=== PATIENT | male | born 1955 | race Caucasian/White ===

== ENCOUNTER 2016-05-20 15:58 | Inpatient (IN) | payer OTHER ==
[~2016-05-20] VITALS: Ht 175.3 cm; Wt 82.5 kg
[2016-05-20] MEDS ORDERED: SODIUM CHLORIDE 0.9% 1000ML 1,000 ML IV STA ×2 (16:48→19:34)
[2016-05-20] MEDS ORDERED: ONDANSETRON INJ 2 MG/ML 2 ML VIAL IV STA (16:48)
--- NOTE | 2016-05-20 16:57 | EMERGENCY ROOM VISIT NOTE ---
History Report prepared by Jeromyibaddison: Mavis Davis Under the Supervision of: Dr. Scott Palma D.O. First contact with patient: 16:40 Chief Complaint: ABNORMAL LABS Stated Complaint: SEVERE INDISGESTION, ABNORMAL EKG History of Present Illness The patient is a 61 year old male who presents to the Emergency Room with complaints of intermittent abdominal discomfort for the past 5 days. He is accompanied by his cousin. The patient reports 5 days ago, he awoke with " severe indigestion" in his epigastric region. He took a Tums and tried eating oatmeal, then vomited it up. He had a normal bowel movement afterwards, but reports it was "yellow" in color. He tried to eat something else later in the day and reports he could not keep anything down. By the next day, he was able to keep both water and food down, but still experienced the intermittent abdominal discomfort. He notes his urine has been "dark orange to yellow" in the past few days. This morning he noticed that his abdomen was distended and he has not had a bowel movement in the past 5 days. He went to a local urgent care clinic earlier today and was told he produced an abnormal EKG. He was then referred here to the ED for further evaluation. He denies any shortness of breath. He denies any chronic medical problems and states he has had no previous surgeries. He denies any tobacco or alcohol use. He reports he is a runner and is normally very healthy, noting he has never had an EKG before. Source of History: patient Onset: 5 days [employer] Position: abdomen Timing: intermittent Modifying Factors (Worsening): eating Associated Symptoms: + nausea, + urinary symptoms, + vomiting, No SOB Review of Systems See HPI for pertinent positives & negatives. A total of 10 systems reviewed and were otherwise negative. Past Medical & Surgical Medical Problems: (1) Atypical chest pain (2) Ileus (3) No significant past medical history Social History Smoking Status: Never Smoker Alcohol Use: none Drug Use: none Marital Status: single Housing Status: lives alone Occupation Status: employed Current/Historical Medications Scheduled Multivitamin (Multivitamin), 1 TAB PO DAILY Allergies Coded Allergies: No Known Allergies (Unverified , 05/20/16) Physical Exam Vital Signs Date Time Temp Pulse Resp B/P Pulse Ox O2 Delivery O2 Flow Rate FiO2 05/20/16 20:07 109 05/20/16 18:56 91 23 128/73 96 Room Air 05/20/16 16:59 92 05/20/16 16:34 37.4 125 20 144/84 96 Room Air Physical Exam GENERAL: Patient is awake, alert, in no acute distress patient is resting comfortably and showing no signs of anxiety EYES: The conjunctivae are clear. The pupils are round and reactive. EARS, NOSE, MOUTH AND THROAT: The nose is without any evidence of any deformity. Mucous membranes are moist tongue is midline NECK: The neck is nontender and supple. RESPIRATORY: Normal respiratory effort is noted there is no evidence of wheezing rhonchi or rales CARDIOVASCULAR: Regular rate and rhythm noted there no murmurs rubs or gallops normal S1 normal S2 GASTROINTESTINAL: The abdomen is moderately distended but soft. There was right upper and epigastric tenderness to palpation, no guarding or rigidity noted. MUSCULOSKELETAL/EXTREMITIES: There is no evidence of gross deformity full range of motion is noted in the hips and shoulders SKIN: There is no obvious evidence of any rash. There are no petechiae, pallor or cyanosis noted. NEUROLOGIC: Patient is awake alert and oriented x3 strength is symmetric patellar reflexes are 2+ bilaterally Medical Decision & Procedures ER Provider Diagnostic Interpretation: These X-Rays were reviewed and interpreted by myself and the radiologist. CHEST ONE VIEW PORTABLE IMPRESSION: Suspect a trace left pleural effusion and left basilar subsegmental atelectasis. Otherwise, no acute process within the chest. Electronically signed by: Guillermo Velasco M.D. 05/20/2016 7:16 PM KUB IMPRESSION: Multiple borderline dilated air-filled loops of large and small bowel seen throughout the abdomen. This favors a mild ileus. No evidence for bowel obstruction. Electronically signed by: Guillermo Velasco M.D. 05/20/2016 7:19 PM This Ultrasound was reviewed and interpreted by the radiologist and reviewed by myself. ABDOMINAL ULTRASOUND, RIGHT UPPER QUADRANT IMPRESSION: 1. Cholelithiasis. Gallbladder wall is top normal in thickness. 2. Mild hepatomegaly. 3. Trace fluid within Morison's pouch. Electronically signed by: Guillermo Velasco M.D. 05/20/2016 7:[address] scans were reviewed and interpreted by the radiologist and reviewed by myself. ABDOMEN AND PELVIS CT WITH IV AND ORAL CONTRAST IMPRESSION: 1. Extensive inflammatory change surrounding the pancreas most pronounced at the pancreatic tail. This is consistent with acute pancreatitis. Recommend correlation with pancreatic enzymes. In addition, recommend follow-up to ensure complete resolution. 2. Cholelithiasis. Normal caliber common bile duct. 3. Trace bilateral pleural effusions. 4. Mild thickening of the proximal stomach. This may be reactive to the pancreatitis. There is also mild thickening of the mid to distal esophagus. 5. There may be mild to moderate narrowing of the proximal splenic artery. No evidence for splenic artery occlusion. 6. Mildly dilated loops of large and small bowel. This favors an ileus. No evidence for bowel obstruction at this time. Electronically signed by: Guillermo Velasco M.D. 05/20/2016 10:07 PM CHEST CTA for PULMONARY ARTERIES IMPRESSION: 1. No evidence for pulmonary embolus with limitations as described above. 2. Trace bilateral pleural effusions. Bilateral lower lobe infiltration favors compressive atelectasis from the pleural effusions. 3. Mild nonspecific thickening of the mid to distal esophagus. 4. Trace pericardial effusion. Electronically signed by: Guillermo Velasco M.D. 05/20/2016 9:57 PM Laboratory Results Test 05/20/16 17:00 05/20/16 17:26 05/20/16 17:40 Immature Granulocyte % (Auto) 0.5 % White Blood Count 19.04 K/uL (4.8-10.8) Red Blood Count 4.72 M/uL (4.7-6.1) Hemoglobin 15.1 g/dL (14.0-18.0) Hematocrit 43.0 % (42-52) Mean Corpuscular Volume 91.1 fL (80-100) Mean Corpuscular Hemoglobin 32.0 pg (25-34) Mean Corpuscular Hemoglobin Concent 35.1 g/dl (32-36) Platelet Count 310 K/uL (130-400) Mean Platelet Volume 10.8 fL (7.4-10.4) Neutrophils (%) (Auto) 83.4 % Lymphocytes (%) (Auto) 10.0 % Monocytes (%) (Auto) 5.6 % Eosinophils (%) (Auto) 0.4 % Basophils (%) (Auto) 0.1 % Neutrophils # (Auto) 15.91 K/uL (1.4-6.5) Lymphocytes # (Auto) 1.90 K/uL (1.2-3.4) Monocytes # (Auto) 1.06 K/uL (0.11-0.59) Eosinophils # (Auto) 0.07 K/uL (0-0.5) Basophils # (Auto) 0.01 K/uL (0-0.2) Immature Granulocyte # (Auto) 0.09 K/uL (0.00-0.02) Total Creatine Kinase 40 U/L (39-308) Creatine Kinase MB 0.6 ng/ml (0.5-3.6) Creatine Kinase MB Ratio 1.5 (0-3.0) Urine Color YELLOW Urine Appearance CLEAR (CLEAR) Urine pH 5.5 (4.5-7.5) Urine Specific [place] 1.005 (1.000-1.030) Urine Protein NEG (NEG) Urine Glucose (UA) NEG (NEG) Urine Ketones NEG (NEG) Urine Occult Blood NEG (NEG) Urine Nitrite NEG (NEG) Urine Bilirubin NEG (NEG) Urine Urobilinogen NEG (NEG) Urine Leukocyte Esterase NEG (NEG) Prothrombin Time 11.7 SECONDS (9.0-12.0) Prothromb Time International Ratio 1.1 (0.9-1.1) Activated Partial Thromboplast Time 30.1 SECONDS (21.0-31.0) Partial Thromboplastin Ratio 1.2 D-Dimer 4080 ug/L FEU (0-500) Laboratory results per my review. Medications Administered Medications (Trade) Dose Ordered Sig/Tres Route Start Time Stop Time Status Last Admin Dose Admin Sodium Chloride (Nss 1000ml) 1,000 ml @ 999 mls/hr Q1H1M STAT IV 05/20/16 16:48 05/20/16 17:48 DC 05/20/16 17:00 999 MLS/HR Ondansetron HCl 4 mg 4 mg NOW STAT IV 05/20/16 16:48 05/20/16 16:50 DC 05/20/16 17:44 4 MG Pantoprazole Sodium 40 mg/ Syringe 10 ml @ 5 mls/min NOW ONCE IV 05/20/16 17:00 05/20/16 17:01 DC 05/20/16 17:44 5 MLS/MIN Sodium Chloride (Nss 1000ml) 1,000 ml @ 250 mls/hr Q4H STAT IV 05/20/16 19:34 05/20/16 21:51 DC 05/20/16 20:20 250 MLS/HR Piperacillin Sod/ Tazobactam Sod (Zosyn Iv) 4.5 gm NOW STAT IV 05/20/16 19:34 05/20/16 19:36 DC 05/20/16 20:20 4.5 GM ECG Indication: chest pain (chest discomfort) Rate (beats per minute): 98 Rhythm: normal sinus (normal sinus rhythm) Findings: ST depression (Anterolateral), T-wave inversion, no ectopy Comparison ECG Date: no prior available ED Course 1647: The patient was evaluated in room B2. A complete history and physical examination were performed. 1647: Zofran 4 mg IV, NSS 1000 ml @ 999 mls/hr IV. 1699: Pantoprazole Sodium 40 mg/Syringe 10 ml @ 5 mls/min IV. 1931: I discussed the patients case with Dr. Rodriguez, [facility] Hospitalist. The patient will be further evaluated. 1933: Zosyn 4.5 gm IV, NSS 1000 ml @ 250 mls/hr IV. 1934: I discussed the patients case with Dr. Anderson, [facility] General Surgery. The patient will be further evaluated. Medical Decision Prior records/ancillary studies reviewed. Triage Nursing notes reviewed. The patient's history was concerning for abdominal pain. Differential diagnosis: Etiologies such as appendicitis, diverticulitis, PUD, biliary pathology, UTI, pancreatitis, obstruction, mesenteric ischemia, aortic pathology, infections, inflammatory bowel disease, renal colic, as well as others were entertained. The patient is a 61-year-old male who presented to the emergency department for an evaluation after he was seen at the [facility] and sent for an abnormal EKG. The patient was having upper abdominal pain with nausea. He had a couple episodes of emesis. His pain began last week. He states the pain is significantly improved. He was found have an EKG with T wave abnormalities. He does not have any chest pain and his cardiac biomarkers are negative. He does have significant upper abdominal pain. I discussed the patient's laboratory and radiographic studies with him. He was found have signs of possible cholecystitis on ultrasound. He was given IV fluids as well as IV antibiotics. I discussed his case with the on-call general surgeon. I also discussed his case with the on-call [facility] hospitalist group. They've agreed to evaluate the patient in the emergency department for further management and disposition. The patient was also found have signs of pancreatitis on CT the abdomen and pelvis. He was found have any signs of pulmonary embolus on CT the chest. Consults Time Called: 1929 Consulting Physician: Dr. Rodriguez [facility] Hospitalist Returned Call: 1931 I discussed the patients case with Dr. Rodriguez [facility] Hospitalist. The patient will be further evaluated. Additional Consults: Time Called: 1932 Consulted Physician: Dr. Anderson [facility] General Surgery Returned Call: 1934 Additional Comments: I discussed the patients case with Dr. Anderson [facility] General Surgery. The patient will be further evaluated. Impression Primary Impression: Cholecystitis Additional Impressions: Epigastric abdominal pain Abnormal EKG Pancreatitis Scribe Attestation The scribe's documentation has been prepared under my direction and personally reviewed by me in its entirety. I confirm that the note above accurately reflects all work, treatment, procedures, and medical decision making performed by me. Departure Information Dispostion Being Evaluated By Hospitalist Referrals No Doctor, Assigned (PCP) Patient Instructions My [facility] Health Problem Qualifiers
[2016-05-20] MEDS ORDERED: PANTOprazole INJ 40 MG in SYRINGE 0 ML IV ONE (17:00)
[2016-05-20 17:18] LABS: MEAN CELL VOLUME 91.1 fL (80-100); MEAN CORPUSCULAR HGB CONC 35.1 g/dl (32-36); MEAN PLATELET VOLUME 10.8 fL (7.4-10.4); PLATELET COUNT 310 K/uL (130-400); RED BLOOD COUNT 4.72 M/uL (4.7-6.1); WHITE BLOOD COUNT 19.04 K/uL (4.8-10.8)
[2016-05-20] MEDS ORDERED: MULT-506 PO (17:33)
[2016-05-20 17:35] LABS: BLOOD UREA NITROGEN 15 mg/dl (7-18); CALCIUM 9.2 mg/dl (8.5-10.1); CARBON DIOXIDE 32 mmol/L (21-32); CHLORIDE 90 mmol/L (98-107); CREATININE 0.93 mg/dl (0.60-1.40); GLUCOSE 111 mg/dl (70-99); POTASSIUM 3.3 mmol/L (3.5-5.1); SODIUM 132 mmol/L (136-145)
[2016-05-20 17:40] LABS: CKMB/CK RATIO 1.5 (0-3.0)
[2016-05-20 17:52] LABS: URINE APPEARANCE CLEAR (CLEAR); URINE BILIRUBIN NEG (NEG); URINE COLOR YELLOW; URINE NITRITE NEG (NEG); URINE PH 5.5 (4.5-7.5); URINE SPECIFIC GRAVITY 1.005 (1.000-1.030); UROBILINOGEN NEG (NEG)
[2016-05-20 17:59] LABS: INR 1.1 (0.9-1.1); PARTIAL THROMBOPLASTIN RATIO 1.2; PROTHROMBIN TIME (PATIENT) 11.7 SECONDS (9.0-12.0)
[2016-05-20 18:03] LABS: MANUAL MICROSCOPIC REQUIRED? NO; REVIEW REQ? NO
[2016-05-20 18:06] LABS: BASO % 0.1 %; BASO ABS # 0.01 K/uL (0-0.2); COMPLETE YES; EOS % 0.4 %; IG% 0.5 %; MONO % 5.6 %; NEUT % 83.4 %
--- NOTE | 2016-05-20 19:09 | DIAGNOSTIC IMAGING REPORT ---
ABDOMINAL ULTRASOUND, RIGHT UPPER QUADRANT HISTORY: Generalized abdominal pain.. COMPARISON: None. FINDINGS: Pancreas: The pancreatic head is obscured by overlying bowel gas. The remaining portions of the pancreas are within normal limits. Liver: Mildly enlarged measuring 19.3 cm in length. Trace fluid within Morison's pouch. Gallbladder: Multiple gallstones filling the gallbladder. The technologist reported a negative sonographic Fitzgerald's sign. The gallbladder wall is top normal in thickness measuring 3 mm. CBD: 5 mm. Right kidney: No hydronephrosis. IMPRESSION: 1. Cholelithiasis. Gallbladder wall is top normal in thickness. 2. Mild hepatomegaly. 3. Trace fluid within Morison's pouch. Electronically signed by: Guillermo Velasco M.D. 05/20/2016 7:07 PM Dictated Date/Time: 05/20/2016 7:05 PM
[2016-05-20] MEDS ORDERED: OPTIRAY 320 IV PRN (19:15)
--- NOTE | 2016-05-20 19:18 | DIAGNOSTIC IMAGING REPORT ---
CHEST ONE VIEW PORTABLE HISTORY: Generalized abdominal pain. COMPARISON: None. FINDINGS: Left basilar linear densities suggesting subsegmental atelectasis or scarring. Blunting of the left lateral costophrenic sulcus which may represent a trace pleural effusion. The right lung is clear. The heart is normal in size. No pneumothorax. IMPRESSION: Suspect a trace left pleural effusion and left basilar subsegmental atelectasis. Otherwise, no acute process within the chest. Electronically signed by: Guillermo Velasco M.D. 05/20/2016 7:16 PM Dictated Date/Time: 05/20/2016 7:15 PM
--- NOTE | 2016-05-20 19:20 | DIAGNOSTIC IMAGING REPORT ---
KUB HISTORY: Generalized abdominal pain. COMPARISON: None. FINDINGS: Multiple borderline air-filled loops of large and small bowel seen throughout the abdomen. No evidence for bowel obstruction. No renal calculi. No ureteral calculi. No pneumoperitoneum or pneumatosis. IMPRESSION: Multiple borderline dilated air-filled loops of large and small bowel seen throughout the abdomen. This favors a mild ileus. No evidence for bowel obstruction. Electronically signed by: Guillermo Velasco M.D. 05/20/2016 7:19 PM Dictated Date/Time: 05/20/2016 7:16 PM
[2016-05-20] MEDS ORDERED: PIPERACILLIN/TAZOBACTAM 4.5 GM/100ML D5W IV STA (19:34)
[2016-05-20] MEDS ORDERED: ONDANSETRON INJ 2 MG/ML 2 ML VIAL IV PRN (20:15)
[2016-05-20] MEDS ORDERED: ALUMINUM/MAGNESIUM/SIMETH (MAALOX MAX) 30 ML UDC PO PRN (20:15)
--- NOTE | 2016-05-20 20:58 | History and Physical ---
History & Physical Date & Time of Service: May 20, 2016 at 20:17 Chief Complaint: Severe Indisgestion, Abnormal Ekg Primary Care Physician: No Doctor, Assigned History of Present Illness Source: patient This is a 61 yo m that is presenting to us with epigastric pain which started approx 5 days prior (sat). He states that in the am on Sat he had an exacerbated stint of his typical indigestion. He was unable to eat any of his breakfast and would vomit with the ingestion of any of his food or even water. He notes he had a normal BM that morning but after the indigestion started. Throughout the day the indigestion improved and was able to eat only very little by the end of the day. Mentions he still hasn't eaten much. He states that the pain was in the epigastric region without any radiation. It is a 4/10, burning sensation and worsens when he is laying down and has to sleep propped up. He went to the urgent care today for evaluation, there was a delay because he has his 99 yo mother living at home and his cousin had to come to help watch over her. At urgent care they advised him to come to the ED because he needed more extensive work up for his GI and they felt his EKG was slightly abnormal. He denies ever having chest pain, fever, diaphoresis, SOBOE. He runs regularly. He has never smoked. No CVS history. His father had an TN at 74 however he was a smoker. Past Medical/Surgical History No significant PMHX Family History Myocardial infarction in first degree male relative of known age FATHER, Onset:74 Social History Smoking Status: Never Smoker Smokeless Tobacco Use: No Alcohol Use: none Drug Use: none Marital Status: single Housing status: lives with family Occupational Status: employed Allergies Coded Allergies: No Known Allergies (Unverified , 05/20/16) Home Medications Scheduled Multivitamin (Multivitamin), 1 TAB PO DAILY Review of Systems Constitutional: No fever Eyes: No worsening of vision ENT: No hearing loss Respiratory: No cough, No dyspnea at rest, No dyspnea on exertion, No shortness of breath, No sputum, No wheezing Cardiovascular: No chest pain Abdomen: + pain, + vomiting, No constipation, No diarrhea, No nausea Musculoskeletal: No joint pain, No muscle pain Neurologic: No balance problems, No numbness/tingling, No paralysis, No weakness Endocrine: No fatigue Integumentary: No rash Physical Exam Vital Signs Date Time Temp Pulse Resp B/P Pulse Ox O2 Delivery O2 Flow Rate FiO2 05/20/16 20:07 109 05/20/16 18:56 91 23 128/73 96 Room Air 05/20/16 16:59 92 05/20/16 16:34 37.4 125 20 144/84 96 Room Air General Appearance: WD/WN, no apparent distress Head: normocephalic, atraumatic Eyes: normal inspection, + abnormal sclerae exam (mild jaundice) ENT: normal ENT inspection Neck: supple Respiratory/Chest: lungs clear, normal breath sounds, no respiratory distress, no accessory muscle use Cardiovascular: regular rate, rhythm, no murmur Abdomen/GI: + distended, + pertinent finding (uncomfortable during exam because of distention but nontender) Back: normal inspection Extremities/Musculoskelatal: normal inspection, no calf tenderness, no pedal edema Neurologic/Psych: no motor/sensory deficits, alert, normal mood/affect, oriented x 3 Skin: normal color, warm/dry, no rash Lymphatic: no adenopathy Diagnostics Laboratory Results Results Past 24 Hours Test 05/20/16 17:00 05/20/16 17:26 05/20/16 17:40 Range/Units White Blood Count 19.04 4.8-10.8 K/uL Red Blood Count 4.72 4.7-6.1 M/uL Hemoglobin 15.1 14.0-18.0 g/dL Hematocrit 43.0 42-52 % Mean Corpuscular Volume 91.1 80-100 fL Mean Corpuscular Hemoglobin 32.0 25-34 pg Mean Corpuscular Hemoglobin Concent 35.1 32-36 g/dl Platelet Count 310 130-400 K/uL Mean Platelet Volume 10.8 7.4-10.4 fL Neutrophils (%) (Auto) 83.4 % Lymphocytes (%) (Auto) 10.0 % Monocytes (%) (Auto) 5.6 % Eosinophils (%) (Auto) 0.4 % Basophils (%) (Auto) 0.1 % Neutrophils # (Auto) 15.91 1.4-6.5 K/uL Lymphocytes # (Auto) 1.90 1.2-3.4 K/uL Monocytes # (Auto) 1.06 0.11-0.59 K/uL Eosinophils # (Auto) 0.07 0-0.5 K/uL Basophils # (Auto) 0.01 0-0.2 K/uL RDW Standard Deviation 43.1 36.4-46.3 fL RDW Coefficient of Variation 12.8 11.5-14.5 % Immature Granulocyte % (Auto) 0.5 % Immature Granulocyte # (Auto) 0.09 0.00-0.02 K/uL Sodium Level 132 136-145 mmol/L Potassium Level 3.3 3.5-5.1 mmol/L Chloride Level 90 98-107 mmol/L Carbon Dioxide Level 32 21-32 mmol/L Anion Gap 10.0 3-11 mmol/L Blood Urea Nitrogen 15 7-18 mg/dl Creatinine 0.93 0.60-1.40 mg/dl Est Creatinine Clear Calc Drug Dose 87.7 ml/min Estimated GFR () 101.6 Estimated GFR (Non- 87.7 BUN/Creatinine Ratio 16.0 10-20 Random Glucose 111 70-99 mg/dl Calcium Level 9.2 8.5-10.1 mg/dl Total Bilirubin 2.2 0.2-1 mg/dl Direct Bilirubin 1.4 0-0.2 mg/dl Aspartate Amino Transf (AST/SGOT) 30 15-37 U/L Alanine Aminotransferase (ALT/SGPT) 158 12-78 U/L Alkaline Phosphatase 133 45-117 U/L Total Creatine Kinase 40 39-308 U/L Creatine Kinase MB 0.6 0.5-3.6 ng/ml Creatine Kinase MB Ratio 1.5 0-3.0 Troponin I < 0.015 0-0.045 ng/ml Total Protein 7.3 6.4-8.2 gm/dl Albumin 2.9 3.4-5.0 gm/dl Lipase 329 73-393 U/L Urine Color YELLOW Urine Appearance CLEAR CLEAR Urine pH 5.5 4.5-7.5 Urine Specific [place] 1.005 1.000-1.030 Urine Protein NEG NEG Urine Glucose (UA) NEG NEG Urine Ketones NEG NEG Urine Occult Blood NEG NEG Urine Nitrite NEG NEG Urine Bilirubin NEG NEG Urine Urobilinogen NEG NEG Urine Leukocyte Esterase NEG NEG Prothrombin Time 11.7 9.0-12.0 SECONDS Prothromb Time International Ratio 1.1 0.9-1.1 Activated Partial Thromboplast Time 30.1 21.0-31.0 SECONDS Partial Thromboplastin Ratio 1.2 D-Dimer 4080 0-500 ug/L FEU Diagnostic Radiology [~ rep ct add3]] CHEST ONE VIEW PORTABLE HISTORY: Generalized abdominal pain. COMPARISON: None. FINDINGS: Left basilar linear densities suggesting subsegmental atelectasis or scarring. Blunting of the left lateral costophrenic sulcus which may represent a trace pleural effusion. The right lung is clear. The heart is normal in size. No pneumothorax. IMPRESSION: Suspect a trace left pleural effusion and left basilar subsegmental atelectasis. Otherwise, no acute process within the chest. ABDOMINAL ULTRASOUND, RIGHT UPPER QUADRANT HISTORY: Generalized abdominal pain.. COMPARISON: None. FINDINGS: Pancreas: The pancreatic head is obscured by overlying bowel gas. The remaining portions of the pancreas are within normal limits. Liver: Mildly enlarged measuring 19.3 cm in length. Trace fluid within Morison's pouch. Gallbladder: Multiple gallstones filling the gallbladder. The technologist reported a negative sonographic Fitzgerald's sign. The gallbladder wall is top normal in thickness measuring 3 mm. CBD: 5 mm. Right kidney: No hydronephrosis. IMPRESSION: 1. Cholelithiasis. Gallbladder wall is top normal in thickness. 2. Mild hepatomegaly. 3. Trace fluid within Morison's pouch. KUB HISTORY: Generalized abdominal pain. COMPARISON: None. FINDINGS: Multiple borderline air-filled loops of large and small bowel seen throughout the abdomen. No evidence for bowel obstruction. No renal calculi. No ureteral calculi. No pneumoperitoneum or pneumatosis. IMPRESSION: Multiple borderline dilated air-filled loops of large and small bowel seen throughout the abdomen. This favors a mild ileus. No evidence for bowel obstruction. ' EKG BPM 98 NSR anteroseptal depression no ectopic beats Impression Assessment and Plan This is a 61 yo m with cholelithiasis and ileus in the presence of an elevated direct bili, alk phos. As this pain has been ongoing since Saturday and since his first troponin was negative it is unlikely it is cardiac in origin. Will recheck one troponin to confirm ongoing negative studies. Ileus secondary to choledocholithiasis vs inflammatory process - recheck CMP in the am - reflective of obstructive process however elevated WBC and tachy concerning for infectious - Zosyn given in the ED, cont zosyn - NPO for now - USG- Cholelithasis without thickened wall - KUB -ileus - CT abd is pending - as alk phos elevated and direct bili, if CT negative for source consider an MRCP - CBC in the am, trend WBC - protonix daily ST depression on EKG - BL vs acute changes - Tele admission - EKG in am - troponin repeat in am Hyponatremia/ Hypokalemia - LR with KCL added to one bag DVT Prophylaxis - SCD as unsure if patient is a surgical candidate FULL CODE Level of Care Telemetry Resuscitation Status FULL RESUSCITATION VTE Prophylaxis VTE Risk Assessment Done? Y/N: Yes Risk Level: Moderate Given or contraindicated: SCD's Social Service Consult None Apply Note Total Time: Critical Care 30 - 74 minutes Attending Admission Note & Resident Attestation: Pt seen/examined, chart reviewed, and care plan d/w PGY2 Dr. Farhana Goodman. I agree with the huang components of her admission documentation with the following exceptions - patient with radiographic evidence of acute pancreatitis. 61yo male with no PMH who is an avid runner (has run 15 marathons without limiting symptoms) who [facility] after an earlier evaluation at a local urgent care for 5 days of abdominal pain. An EKG was also done at the urgent care and he was told it was abnormal. He has had associated nausea, vomiting, and lack of stool. No fevers or chills. He denies any previous episodes of abdominal pain over the last few months except for some mild GERD. In the ER bj was found to have an ileus, abnormal LFTs, and gallstones on RUQ u/s. PMH/PSH, allergies, meds, sochx, famhx, ros - reviewed tachy, otherwise VSS gen - NAD, nontoxic eyes - minimal scleral icterus neck - no JVD mouth - MM dry heart - RRR, s1, s2, no murmur lungs - CTA b/l abd - grossly distended, tympanic to percussion, BS+ (slightly decreased), tender epigastric region, no HSM, no masses ext - no edema skin - no jaundice 05/20/16 17:00 Red Blood Count 4.72, Mean Corpuscular Volume 91.1, Mean Corpuscular Hemoglobin 32.0, Mean Corpuscular Hemoglobin Concent 35.1, Mean Platelet Volume 10.8, Neutrophils (%) (Auto) 83.4, Lymphocytes (%) (Auto) 10.0, Monocytes (%) (Auto) 5.6, Eosinophils (%) (Auto) 0.4, Basophils (%) (Auto) 0.1, Neutrophils # (Auto) 15.91, Lymphocytes # (Auto) 1.90, Monocytes # (Auto) 1.06, Eosinophils # (Auto) 0.07, Basophils # (Auto) 0.01 05/20/16 17:00 Test 05/20/16 17:00 05/20/16 17:26 05/20/16 17:40 White Blood Count 19.04 K/uL (4.8-10.8) Red Blood Count 4.72 M/uL (4.7-6.1) Hemoglobin 15.1 g/dL (14.0-18.0) Hematocrit 43.0 % (42-52) Mean Corpuscular Volume 91.1 fL (80-100) Mean Corpuscular Hemoglobin 32.0 pg (25-34) Mean Corpuscular Hemoglobin Concent 35.1 g/dl (32-36) Platelet Count 310 K/uL (130-400) Mean Platelet Volume 10.8 fL (7.4-10.4) Neutrophils (%) (Auto) 83.4 % Lymphocytes (%) (Auto) 10.0 % Monocytes (%) (Auto) 5.6 % Eosinophils (%) (Auto) 0.4 % Basophils (%) (Auto) 0.1 % Neutrophils # (Auto) 15.91 K/uL (1.4-6.5) Lymphocytes # (Auto) 1.90 K/uL (1.2-3.4) Monocytes # (Auto) 1.06 K/uL (0.11-0.59) Eosinophils # (Auto) 0.07 K/uL (0-0.5) Basophils # (Auto) 0.01 K/uL (0-0.2) RDW Standard Deviation 43.1 fL (36.4-46.3) RDW Coefficient of Variation 12.8 % (11.5-14.5) Immature Granulocyte % (Auto) 0.5 % Immature Granulocyte # (Auto) 0.09 K/uL (0.00-0.02) Anion Gap 10.0 mmol/L (3-11) Est Creatinine Clear Calc Drug Dose 87.7 ml/min Estimated GFR () 101.6 Estimated GFR (Non- 87.7 BUN/Creatinine Ratio 16.0 (10-20) Calcium Level 9.2 mg/dl (8.5-10.1) Total Bilirubin 2.2 mg/dl (0.2-1) Direct Bilirubin 1.4 mg/dl (0-0.2) Aspartate Amino Transf (AST/SGOT) 30 U/L (15-37) Alanine Aminotransferase (ALT/SGPT) 158 U/L (12-78) Alkaline Phosphatase 133 U/L (45-117) Total Creatine Kinase 40 U/L (39-308) Creatine Kinase MB 0.6 ng/ml (0.5-3.6) Creatine Kinase MB Ratio 1.5 (0-3.0) Troponin I < 0.015 ng/ml (0-0.045) Total Protein 7.3 gm/dl (6.4-8.2) Albumin 2.9 gm/dl (3.4-5.0) Lipase 329 U/L (73-393) Urine Color YELLOW Urine Appearance CLEAR (CLEAR) Urine pH 5.5 (4.5-7.5) Urine Specific [place] 1.005 (1.000-1.030) Urine Protein NEG (NEG) Urine Glucose (UA) NEG (NEG) Urine Ketones NEG (NEG) Urine Occult Blood NEG (NEG) Urine Nitrite NEG (NEG) Urine Bilirubin NEG (NEG) Urine Urobilinogen NEG (NEG) Urine Leukocyte Esterase NEG (NEG) Prothrombin Time 11.7 SECONDS (9.0-12.0) Prothromb Time International Ratio 1.1 (0.9-1.1) Activated Partial Thromboplast Time 30.1 SECONDS (21.0-31.0) Partial Thromboplastin Ratio 1.2 D-Dimer 4080 ug/L FEU (0-500) CT chest - no PE; distal esophagus thickened CT abd/pelvis - pancreatitis and ileus; gallstones EKG - inverted T waves anteroseptal leads A/P: 1. gallstones with abnormal RUQ u/s (thickened wall, etc) 2. ileus - likely due to pancreatitis and illness in general 3. abnormal LFTs 4. acute pancreatitis on CT - 2nd to passed gallstone?? 5. thickened esophagus on CT - esophagitis? 6. sepsis 2nd to acute cholecystitis / pancreatitis? 7. abnormal EKG but no ischemic symptoms acutely or chronically 8. hyponatremia 9. hypokalemia * NPO * generous LR * replenish K; recheck K with mag in AM * repeat LFTs am * broad-spectrum abx in the event he has cholecystitis * gen surg consult * IV PPI * blood cx's not sent and has already received broad-spectrum IV abx * consider NG tube for ileus if he has vomiting * if he needs a surgical procedure, in light of abnormal EKG, at very least would need echo, etc * may need MRCP especially if bilirubin rises but thus far CBD is normal on imaging Ezra Rodriguez MD
[2016-05-20 21:45] VITALS: BP 163/79; PULSE 100; TEMP 37.4; O2SAT 94; Ht 175.3 cm; Wt 82.5 kg
--- NOTE | 2016-05-20 21:58 | DIAGNOSTIC IMAGING REPORT ---
CHEST CTA for PULMONARY ARTERIES CT DOSE: 664.27 mGy.cm HISTORY: Abnormal EKG. Upper abdominal pain. TECHNIQUE: Multiaxial CT images of the chest were performed following the intravenous administration of contrast to evaluate the pulmonary arteries. Maximal intensity projection images were also obtained. COMPARISON STUDY: Chest 05/20/2016. FINDINGS: Normal caliber thoracic aorta with no evidence for dissection. A few of the segmental/subsegmental pulmonary arteries within the left lower lobe are nondiagnostic due to motion artifact. Otherwise, the remaining pulmonary arteries show no filling defects to suggest pulmonary embolus. Mild thickening of the mid to distal esophagus. There are trace bilateral pleural effusions. Trace pericardial fluid. The heart is normal in size. No mediastinal or hilar lymphadenopathy. The central airways are patent. No pneumothorax. A few scattered punctate calcified granulomas. Bilateral lower lobe posterior consolidation favors compressive atelectasis. IMPRESSION: 1. No evidence for pulmonary embolus with limitations as described above. 2. Trace bilateral pleural effusions. Bilateral lower lobe infiltration favors compressive atelectasis from the pleural effusions. 3. Mild nonspecific thickening of the mid to distal esophagus. 4. Trace pericardial effusion. Electronically signed by: Guillermo Velasco M.D. 05/20/2016 9:57 PM Dictated Date/Time: 05/20/2016 9:48 PM
[2016-05-20] MEDS ORDERED: NSS + 20MEQ KCL 1000ML 1,000 ML IV SCH (22:00)
[2016-05-20] MEDS ORDERED: PIPERACILL/TAZOBAC CONSULT ACTIVE PRN (22:00)
--- NOTE | 2016-05-20 22:08 | DIAGNOSTIC IMAGING REPORT ---
ABDOMEN AND PELVIS CT WITH IV AND ORAL CONTRAST CT DOSE: HISTORY: abnormal EKG, upper abdominal pain TECHNIQUE: Multiaxial CT images of the abdomen and pelvis were performed following the use of intravenous and oral contrast. COMPARISON STUDY: None. FINDINGS: Trace bilateral pleural effusions. Mild thickening of the mid to distal esophagus and gastric cardia. Multiple stones within the gallbladder. No gallbladder wall thickening. No hepatic or splenic masses. The adrenal glands and kidneys are unremarkable. There is a duplicated right renal collecting system. No hydronephrosis. No pneumoperitoneum. No pneumatosis. Tiny fat-containing left inguinal hernia. The prostate gland is mildly enlarged. Normal bladder. No retroperitoneal lymphadenopathy. The pancreas enhances normally. However, there is extensive inflammatory change surrounding the pancreas most pronounced at the pancreatic tail. No loculated fluid collections at this time. The portal, splenic, and superior mesenteric vein are patent. There may be mild to moderate narrowing of the proximal splenic artery. However, there is no evidence for splenic artery occlusion. Trace fluid within the right lower quadrant. Trace pelvic free fluid. A few colonic diverticula. Multiple mildly dilated gas and fluid-filled loops of large small bowel. This likely represents an ileus. No evidence for bowel obstruction at this time. Fluid and gas filled appendix measuring up to 6 mm in diameter. Therefore, this is considered to be within the range of normal limits. IMPRESSION: 1. Extensive inflammatory change surrounding the pancreas most pronounced at the pancreatic tail. This is consistent with acute pancreatitis. Recommend correlation with pancreatic enzymes. In addition, recommend follow-up to ensure complete resolution. 2. Cholelithiasis. Normal caliber common bile duct. 3. Trace bilateral pleural effusions. 4. Mild thickening of the proximal stomach. This may be reactive to the pancreatitis. There is also mild thickening of the mid to distal esophagus. 5. There may be mild to moderate narrowing of the proximal splenic artery. No evidence for splenic artery occlusion. 6. Mildly dilated loops of large and small bowel. This favors an ileus. No evidence for bowel obstruction at this time. Electronically signed by: Guillermo Velasco M.D. 05/20/2016 10:07 PM Dictated Date/Time: 05/20/2016 9:57 PM
[2016-05-21] VITALS (8 sets, daily range): BP systolic 116–158; BP diastolic 64–80; PULSE 75–84; TEMP 36.9–37.2; O2SAT 95–97
[2016-05-21] MEDS ORDERED: PIPERACILL/TAZOBAC IV 3.375 GM in DEXTROSE 5% 100ML 100 ML IV SCH ×2
[2016-05-21] MEDS ORDERED: LACTATED RINGER S IV SCH ×2
[2016-05-21] MEDS ORDERED: POTASSIUM CHLORIDE IV SCH ×2
[2016-05-21] MEDS ORDERED: INFLUENZA ADMINISTRATION CHARGE ONE (02:15)
[2016-05-21] MEDS ORDERED: INFLUENZA VIRUS QUAD VACCINE 0.5 ML SYR IM. ONE (02:15)
[2016-05-21] MEDS: PIPERACILL/TAZOBAC IV 3.375 GM in DEXTROSE 5% 100ML IV SCH ×3 (02:31→18:30)
[2016-05-21] MEDS: LACTATED RINGER'S 1000ML 1,000 ML IV SCH ×4 (05:24→22:02)
[2016-05-21 05:42] LABS: HEMATOCRIT 38.7 % (42-52); MEAN CELL VOLUME 91.7 fL (80-100); MEAN CORPUSCULAR HEMOGLOBIN 31.8 pg (25-34); MEAN CORPUSCULAR HGB CONC 34.6 g/dl (32-36); MEAN PLATELET VOLUME 10.5 fL (7.4-10.4); PLATELET COUNT 317 K/uL (130-400); RED BLOOD COUNT 4.22 M/uL (4.7-6.1)
[2016-05-21 06:16] LABS: ALT/SGPT 111 U/L (12-78); BLOOD UREA NITROGEN 13 mg/dl (7-18); BUN/CREATININE RATIO 15.3 (10-20); CALCIUM 8.2 mg/dl (8.5-10.1); CARBON DIOXIDE 27 mmol/L (21-32); CHLORIDE 101 mmol/L (98-107); CREATININE 0.86 mg/dl (0.60-1.40); GLUCOSE 107 mg/dl (70-99); POTASSIUM 4.2 mmol/L (3.5-5.1); SODIUM 138 mmol/L (136-145)
[2016-05-21 06:17] LABS: ALB/GLOB RATIO 0.6 (0.9-2); ALKALINE PHOSPHATASE 109 U/L (45-117); AST/SGOT 25 U/L (15-37)
[2016-05-21] MEDS ORDERED: CEFTRIAXONE SOD INJ 1 GM in DEXTROSE 5% ADD-VANTAGE 50ML 50 ML IV SCH (08:00)
--- NOTE | 2016-05-21 09:37 | CONSULTATION REPORT ---
DATE OF CONSULTATION: 05/21/2016 SUMMARY: I briefly saw Mr. Kennedy in the Emergency Room last evening while I was seeing another trauma patient, but Dr. Palma asked me to look at him briefly. His labs and x-rays were all still pending for some technical issues. As I saw him, he basically related to me that he had a 5-day or so history of abdominal pain, actually was feeling a little bit better. He waited to come into the hospital because he was taking care of his 99-year-old mother and could not find someone to take care of her. On examination briefly the evening I saw him, his abdomen was distended. He had no real right upper quadrant tenderness, although the ultrasound had showed some wall thickening in the gallbladder and some stones. I recommended Dr. Palma that he have medicine see the patient because there was a cardiac history/issue when he was seen in urgent care center. They admitted him and we had a consultation this morning. As I see Kentrell this morning, he feels much better than he had been. He states that the pain started on Saturday, but Saturday evening I think he ate some pork chops, whether or not that was a triggering point of his gallbladder problem. He was really significantly nauseated for the next day or so. Denies any back pain, but eventually it was a persistent nagging pain that brought him to the hospital. His overall past history is pretty much unremarkable. He states he has run at least 15 marathons. He has run the [employer]athon 5 times. He has no known allergies and no systemic diseases. He really takes no medicine except a multivitamin. As I see him this morning, he is resting fairly comfortably, in no acute distress. As stated, he feels much better. His last vitals showed him to have a temperature of 37.1, pulse 84, respirations 16, blood pressure 158/77, O2 sats 97 on room air. I\T\O, he had 600 mL of urine overnight. No bowel movements. Laboratory guerrero, this morning his white count is 18,000, it was 1904 yesterday, did not get a differential this morning, although he had a left shift yesterday. Hemoglobin is 13.4. The chemistries last evening when they came back showed a total bilirubin of 2.2 with elevated alkaline phosphatase. This morning his liver enzymes are coming back down, his lipase is 367. Imaging also last night showed what appears to be extensive inflammatory changes around the pancreas, most pronounced on the pancreatic tail, consistent with acute pancreatitis, cholelithiasis, normal caliber common bile duct, bilateral pleural effusion, mild thickening of the proximal stomach with some ileus. PHYSICAL EXAMINATION: GENERAL: He is alert, coherent, and as stated, in no acute distress. HEAD: Normocephalic. EYES: PERRLA. The sclerae are nonicteric. NECK: No cervical lymphadenopathy. HEART AND LUNGS: Clear. ABDOMEN: Softer than I had seen yesterday, although he does have some right upper quadrant fullness. No real tenderness. EXTREMITIES: Grossly normal. At this time, the primary cause I suspect is an acute cholecystitis, probably significant, that I would recommend proceeding with laparoscopic cholecystectomy, intraoperative cholangiogram, possible open. I think the primary etiology was he had passed a gallstone that has resolved. If his cardiac evaluation is completed today and there is no cardiac issue, I will have him on a schedule to proceed with surgery tomorrow. He would like to get something to eat, but today I stressed him that it probably is not a good idea, we can give him some water and sips, but I do not want to activate the pancreas.
--- NOTE | 2016-05-21 11:36 | Family Medicine Progress Note ---
Progress Note Date of Service May 21, 2016. Subjective Pt evaluation today including: conversation w/ patient, conversation w/ family Mr Kennedy felt a lot better today, especially compared to when he came in. Reports he always has indigestion and Saturday woke up with worsening abdominal pain and vomiting. Reports his mother is living with him and that is why he hasn't exercised as much overall. Constitutional: No chills, No fever, No sweats, No weight loss ENT: No hearing loss Respiratory: No cough, No shortness of breath, No sputum, No wheezing Cardiovascular: No chest pain Abdomen: + pain, No diarrhea, No nausea, No vomiting Male : No dysuria Neurologic: No memory loss All Other Systems: Reviewed and Negative Medications Current Inpatient Medications Medications (Trade) Dose Ordered Sig/Tres Route Start Time Stop Time Status Last Admin Dose Admin Ioversol (Optiray 320) 100 ml UD PRN IV 05/20/16 19:15 05/24/16 19:14 Al Hydrox/Mg Hydrox/Simethicone (Maalox Max Susp) 15 ml Q4H PRN PO 05/20/16 20:15 06/19/16 20:14 Ondansetron HCl (Zofran Inj) 4 mg Q6H PRN IV 05/20/16 20:15 06/19/16 20:14 Piperacillin Sod/ Tazobactam Sod 1 ea 1 ea UD PRN N/A 05/20/16 22:00 06/19/16 21:59 Pantoprazole Sodium 40 mg/ Syringe 10 ml @ 5 mls/min DAILY@11 IV 05/21/16 11:00 06/20/16 10:59 05/21/16 11:57 5 MLS/MIN Piperacillin Sod/ Tazobactam Sod 3.375 gm/Dextrose 115 ml @ 28.75 mls/ hr Q8H IV 05/21/16 02:00 05/30/16 01:59 05/21/16 10:11 28.75 MLS/HR Lactated Ringer's (Lr 1000ml) 1,000 ml @ 200 mls/hr Q5H IV 05/21/16 05:00 05/21/16 14:59 05/21/16 10:11 200 MLS/HR Objective Vital Signs Date Time Temp Pulse Resp B/P Pulse Ox O2 Delivery O2 Flow Rate FiO2 05/21/16 12:21 Room Air 05/21/16 11:29 37.1 78 16 137/80 96 Room Air 05/21/16 08:23 Room Air 05/21/16 07:14 37.1 84 16 158/77 97 Room Air 05/21/16 04:00 37.2 82 16 137/78 97 Room Air 05/21/16 04:00 Room Air 05/21/16 00:00 Room Air 05/20/16 21:45 37.4 100 18 163/79 94 Room Air 05/20/16 20:26 90 21 145/75 95 Room Air 05/20/16 20:07 109 05/20/16 18:56 91 23 128/73 96 Room Air 05/20/16 16:59 92 05/20/16 16:34 37.4 125 20 144/84 96 Room Air Physical Exam General Appearance: WD/WN, no apparent distress Eyes: normal inspection, PERRL ENT: hearing grossly normal Neck: supple, no JVD Respiratory/Chest: lungs clear, normal breath sounds, no respiratory distress Cardiovascular: regular rate, rhythm, no murmur Abdomen: normal bowel sounds, soft, + guarding Extremities: non-tender, normal inspection, no pedal edema Neurologic/Psychiatric: alert, normal mood/affect, oriented x 3 Skin: no rash Laboratory Results Last 24 Hours Test 05/20/16 17:00 05/20/16 17:26 05/20/16 17:40 05/21/16 05:10 White Blood Count 19.04 K/uL 18.00 K/uL Red Blood Count 4.72 M/uL 4.22 M/uL Hemoglobin 15.1 g/dL 13.4 g/dL Hematocrit 43.0 % 38.7 % Mean Corpuscular Volume 91.1 fL 91.7 fL Mean Corpuscular Hemoglobin 32.0 pg 31.8 pg Mean Corpuscular Hemoglobin Concent 35.1 g/dl 34.6 g/dl Platelet Count 310 K/uL 317 K/uL Mean Platelet Volume 10.8 fL 10.5 fL Neutrophils (%) (Auto) 83.4 % Lymphocytes (%) (Auto) 10.0 % Monocytes (%) (Auto) 5.6 % Eosinophils (%) (Auto) 0.4 % Basophils (%) (Auto) 0.1 % Neutrophils # (Auto) 15.91 K/uL Lymphocytes # (Auto) 1.90 K/uL Monocytes # (Auto) 1.06 K/uL Eosinophils # (Auto) 0.07 K/uL Basophils # (Auto) 0.01 K/uL RDW Standard Deviation 43.1 fL 43.3 fL RDW Coefficient of Variation 12.8 % 13.0 % Immature Granulocyte % (Auto) 0.5 % Immature Granulocyte # (Auto) 0.09 K/uL Sodium Level 132 mmol/L 138 mmol/L Potassium Level 3.3 mmol/L 4.2 mmol/L Chloride Level 90 mmol/L 101 mmol/L Carbon Dioxide Level 32 mmol/L 27 mmol/L Anion Gap 10.0 mmol/L 10.0 mmol/L Blood Urea Nitrogen 15 mg/dl 13 mg/dl Creatinine 0.93 mg/dl 0.86 mg/dl Est Creatinine Clear Calc Drug Dose 87.7 ml/min 89.1 ml/min Estimated GFR () 101.6 107.7 Estimated GFR (Non- 87.7 92.9 BUN/Creatinine Ratio 16.0 15.3 Random Glucose 111 mg/dl 107 mg/dl Calcium Level 9.2 mg/dl 8.2 mg/dl Total Bilirubin 2.2 mg/dl 1.6 mg/dl Direct Bilirubin 1.4 mg/dl 1.0 mg/dl Aspartate Amino Transf (AST/SGOT) 30 U/L 25 U/L Alanine Aminotransferase (ALT/SGPT) 158 U/L 111 U/L Alkaline Phosphatase 133 U/L 109 U/L Total Creatine Kinase 40 U/L Creatine Kinase MB 0.6 ng/ml Creatine Kinase MB Ratio 1.5 Troponin I < 0.015 ng/ml < 0.015 ng/ml Total Protein 7.3 gm/dl 6.1 gm/dl Albumin 2.9 gm/dl 2.2 gm/dl Lipase 329 U/L 367 U/L Urine Color YELLOW Urine Appearance CLEAR Urine pH 5.5 Urine Specific [place] 1.005 Urine Protein NEG Urine Glucose (UA) NEG Urine Ketones NEG Urine Occult Blood NEG Urine Nitrite NEG Urine Bilirubin NEG Urine Urobilinogen NEG Urine Leukocyte Esterase NEG Prothrombin Time 11.7 SECONDS Prothromb Time International Ratio 1.1 Activated Partial Thromboplast Time 30.1 SECONDS Partial Thromboplastin Ratio 1.2 D-Dimer 4080 ug/L FEU Magnesium Level 2.0 mg/dl Globulin 3.9 gm/dl Albumin/Globulin Ratio 0.6 Assessment and Plan 61 yo M presented with epigastric pain sec to acute cholecystitis, initially with EKG changes on admission (new anterior T wave inversion). For lap malena tomorrow pending cardiology clearance. Acute cholecystitis/Acute gallstone pancreatitis (noted on CT scan with normal lipase) - NPO from midnight - Reviewed by Dr Anderson already, for lap malena tomorrow AM - Continue IVF - LR at 125mL/hour - LFT better - WBC slightly better. - Continue IV zosyn. - PPI Electrolyte disturbance - Resolved EKG changes - Cardiology clearance prior to cholecystectomy - Echo today Abdominal discomfort/Nausea sec to Ileus due to constipation and acute illness - Well controlled currently, continue PRN Zofran, will add Morphine if needed VTE: SCDS CODE: FULL DISPO: MED/SURG Resident Tracking Resident Involvement: Resident Care Provided Care Provided: Adult Hospital Medicine Reviewed: Pt Seen/Exam by Me History abdomen feeling much better Constitutional: denies: fever Respiratory: negative: short of breath Cardiovascular: denies chest pain General Appearance: no apparent distress Respiratory: lungs clear, no respiratory distress Cardiovascular: regular rate, rhythm Gastrointestinal: normal bowel sounds, non tender, soft Neurologic/Psychiatric: alert, oriented x 3 Skin Characteristics: warm/dry Assessment/Plan I have reviewed the medical record and performed a history and physical examination of this patient today. I have discussed the case with Dr. Diaz. The above note reflects my findings, conclusions, and recommendations.
[2016-05-21] MEDS: PANTOprazole INJ 40 MG in SYRINGE 0 ML IV SCH (11:57)
--- NOTE | 2016-05-21 13:10 | CARDIOLOGY CONSULTATION REPORT ---
DATE OF CONSULTATION: 05/21/2016 REASON FOR CONSULTATION: 1. Abnormal EKG showing T-wave inversion in leads V1 through V4. 2. Preoperative cardiac evaluation. 3. Acute Pancreatitis, Cholelithiasis HISTORY OF PRESENT ILLNESS: Mr. Kennedy is a very pleasant 61-year-old white male who presented acutely on 05/20/2016 with epigastric pain over the preceding 5 days, indigestion, nausea, and vomiting. He was found to have acute pancreatitis / cholecystitis, and will undergo surgery tomorrow. The patient denies any prior cardiac history or prior cardiac events. His cardiac risk factors include age, gender, and a family history of CAD (father with SD at the age of 74). The patient remains physically active on a daily basis, and has not experienced any limiting cardiopulmonary symptoms whatsoever. He generally runs 3 to 6 days per week, and typically runs 30 miles per week. He has not experienced limiting cardiopulmonary symptoms or any recent changes in his exertional tolerance. He specifically denies any exertional chest pain, heaviness, tightness, or pressure. No exertional neck, jaw, back, or arm pain. No shortness of breath, unusual dyspnea on exertion, or any recent changes in his exercise tolerance. He further denies any orthopnea, PND, palpitations, syncope, or near syncope. The patient has never had a stress test. He has never had a cardiac catheterization because these tests were never indicated. MEDICATIONS: 1. Protonix 40 mg IV daily. 2. Lactated Ringer's. 3. Piperacillin/tazobactam 3.375 grams IV q 8 hrs. 4. Maalox Max p.r.n. 5. Zofran 4 mg IV q. 6 hours p.r.n. for nausea. ALLERGIES: No known drug allergies. PAST MEDICAL HISTORY: 1. No significant past medical history. 2. No prior cardiac history or prior cardiac events. 3. No history of hypertension. 4. No history of hypercholesterolemia. 5. He is a lifelong nonsmoker. SOCIAL HISTORY: The patient is single and lives in [place], [place]. He takes care of his 99-year-old mother who lives with him. He is a lifelong nonsmoker. Does not drink alcohol. Runs for exercise. FAMILY HISTORY: Significant for CAD in his father who had an SD at the age of 74. PHYSICAL EXAMINATION: VITAL SIGNS: Temperature is 37.1 degrees Celsius, pulse 84 and regular, respiratory rate 16 and unlabored, blood pressure 158/77, SpO2 is 97% on room air. GENERAL: The patient is no acute distress. HEENT: Head is atraumatic, normocephalic. EOMs intact. Sclerae anicteric. Facies symmetric. No perioral cyanosis. Mucous membranes moist. NECK: Without thyromegaly, adenopathy, or JVD. Carotid upstrokes are +2 bilaterally without bruits. CHEST AND LUNGS: Clear to auscultation throughout all lung devlin. No wheezes, rales, or rhonchi. CARDIOVASCULAR SYSTEM: S1 and S2 are regular without murmur, gallop, or rub. PMI nondisplaced. No lifts, heaves, or thrills. No abdominal aortic or renal bruits. ABDOMEN: Bowel sounds are present. EXTREMITIES: Without clubbing, cyanosis, or edema. NEUROLOGIC: The patient is awake, alert and oriented. Pleasant and cooperative. Answers questions appropriately. Speech is clear. Normal movement in all four extremities. Gait pattern not assessed. EKG on admission 05/20/2016 shows normal sinus rhythm with T-wave inversion in leads V1 through V4, slight ST segment depression in lead V3 and V4. No prior tracings for comparison. RSR prime complex is present in lead V1. Followup EKG 05/21/2016 shows normal sinus rhythm with anterior T-wave inversion, ST segments are no longer depressed. QT interval is 465 milliseconds. Echocardiogram is pending. LABORATORIES: White blood cell count is 18.00 x10 to the third, hemoglobin is 13.4 g/dL, hematocrit 38.7%, platelet count 317,000. Sodium was 138 mmol/L, potassium 4.2 mmol/L, BUN 13 mg/dL, creatinine 0.86 mg/dL, random glucose 107 mg/dL. Total bilirubin is 1.6 with a direct bilirubin 1.0. ALT is elevated at 111 units/L. Total CK 40 units/L with a CKMB of 0.6 ng/mL. Troponin I less than 0.015 ng/mL x2. Lipase level is 367 units/L. D-dimer markedly elevated at 4080 mcg/L. CT scan of the abdomen and pelvis is suggestive of acute pancreatitis, and cholelithiasis. Mild thickening of the proximal stomach, as well as thickening of the mid to distal esophagus, as well as evidence of an ileus. ASSESSMENT: 1. Acute pancreatitis/cholecystitis with cholelithiasis. 2. Abnormal EKG, uncertain etiology. 3. Minimal cardiac risk factors. 4. No limiting cardiopulmonary symptoms despite a very physically active lifestyle. PLAN: 1. The patient will be undergoing abdominal surgery tomorrow with Dr. Anderson for cholelithiasis, which has likely contributed to his acute pancreatitis. 2. Check echocardiogram to evaluate for any regional wall motion abnormalities. Suspect his EKG changes may be related to his current acute illness. 3. Suspect that this patient does not have any significant cardiac disease based on his very active lifestyle without limiting cardiopulmonary symptoms. 4. Provided his LVEF is normal on Echo, and based on his exercise tolerance - patient is an acceptable surgical risk to proceed with surgery as scheduled. 5. Thank you for asking us to see this patient in consultation. YAMILETH
--- NOTE | 2016-05-21 14:42 | Anesthesiology Progress Note ---
Anesthesia Progress Note Date of Service May 21, 2016. Progress Notes The patient is a 61 y/o male scheduled for a lap malena tomorrow. He has had epigastric pain for the past five days with indigestion. He was diagnosed with acute pancreatitis/cholecystitis yesterday. PMH is nonsignificant. The patient has had no problems with anesthesia for dental surgeries. He is an avid runner and has no other medical history. An EKG showed T wave abnormality so cardiology has seen the patient and obtained an echocardiogram which is pending. His CXR shows subsegmental atelectasis. Labs are significant for D- Dimer of 4080. His troponin was negative. On exam the patient was comfortably lying in bed. He has a mustache. He has good neck extension and is a MP 2. He has a reconstructed tooth in the upper R quadrant of his mouth. Lungs were clear and heart was RRR. Neck was negative for carotid bruits. He is an ASA 2 pending the echo report. He was consented for general anesthesia with ETT. He was counseled to remain NPO after midnight except for sips of water with pills.
--- NOTE | 2016-05-21 15:07 | ECHOCARDIOGRAM REPORT ---
*NOTICE TO RECEIVING LIBERTARIAN AGENCY This information is strictly Confidential and protected under [place] law. [place] law prohibits you from making any further disclosure of this information unless further disclosure is expressly permitted by the written consent of the person to whom it pertains or is authorized by law. A general authorization for the release of medical or other information is not sufficient for this purpose. Hospital accepts no responsibility if the information is made available to any other person, INCLUDING THE PATIENT. Interpretation Summary * Name: MITZI DIAZ JR Study Date: 05/21/2016 02:16 PM BP: 137/80 mmHg * Patient Location: [facility]\S\N288\S\2 HR: 78 * : 1955 (M/d/yyyy) Gender: Male Height: 69 in * Age: 61 yrs Ethnicity: CA Weight: 177 lb * Ordering Physician: Artem Manuel * Referring Physician: Self, Referred * Performed By: Flores Schreiber RDCS * * Reason For Study: ABNORMAL EKG, PREOP CARDIAC EVALUATION * BSA: 2.0 m2 * History: ABNORMAL EKG, PREOP CARDIAC EVALUATION * -- Conclusions -- * Left ventricular systolic function is normal. * No regional wall motion abnormalities noted. * Ejection Fraction = 60-65%. * There is mild concentric left ventricular hypertrophy. * Grade I diastolic dysfunction, (abnormal relaxation pattern). * No valvular pathology. Procedure Details * A complete two-dimensional transthoracic echocardiogram was performed (2D, M-mode, Doppler and color flow Doppler). Left Ventricle * The left ventricle is normal in size. * There is mild concentric left ventricular hypertrophy. * Ejection Fraction = 60-65%. * Left ventricular systolic function is normal. * No regional wall motion abnormalities noted. Right Ventricle * The right ventricle is normal size. * The right ventricular systolic function is normal as assessed by tricuspid annular plane systolic excursion (TAPSE) (normal >1.5 cm). Atria * The left atrium is mildly dilated. * Right atrial size is normal. * No ASD detected; PFO is not assessed. Mitral Valve * The mitral valve anatomy is normal. * There is no mitral valve stenosis. * Significant mitral regurgitation is absent. Tricuspid Valve * The tricuspid valve is not well visualized, but is grossly normal. * There is no tricuspid stenosis. * Significant tricuspid regurgitation is absent. Aortic Valve * The aortic valve is normal in structure and function. * No hemodynamically significant valvular aortic stenosis. * No aortic regurgitation is present. Pulmonic Valve * The pulmonary valve is not well seen, but the Doppler examination is normal without significant regurgitation or stenosis. * There is no significant pulmonary regurgitation. Great Vessels * The aortic root is normal size. * The pulmonary artery is not well visualized, but is probably normal size. Pericardium/Pleural * There is no pericardial effusion. Great Vessels * Normal inferior vena cava size and collapsability with sniff indicates a normal right atrial pressure of 3 mmHg Left Ventricular Diastolic Function * Grade I diastolic dysfunction, (abnormal relaxation pattern). MMode 2D Measurements and Calculations IVSd 1.2 cm IVSs 1.8 cm LVIDd 4.4 cm LVIDs 3.0 cm LVPWd 1.3 cm LVPWs 1.7 cm IVS/LVPW 0.98 FS 32.1 % EDV(Teich) 88.7 ml ESV(Teich) 35.1 ml EF(Teich) 60.4 % EDV(cubed) 86.4 ml ESV(cubed) 27.1 ml EF(cubed) 68.7 % % IVS thick 42.0 % % LVPW thick 33.4 % LV mass(C)d 207.1 grams LV mass(C)dI 105.5 grams/m\S\2 LV mass(C)s 203.9 grams LV mass(C)sI 103.9 grams/m\S\2 SV(Teich) 53.6 ml SI(Teich) 27.3 ml/m\S\2 SV(cubed) 59.3 ml SI(cubed) 30.2 ml/m\S\2 Ao root diam 3.5 cm Ao root area 9.9 cm\S\2 LA dimension 3.7 cm LA/Ao 1.1 LVAd ap4 32.1 cm\S\2 LVLd ap4 8.7 cm EDV(MOD-sp4) 97.0 ml EDV(sp4-el) 100.6 ml LVAs ap4 18.6 cm\S\2 LVLs ap4 7.0 cm ESV(MOD-sp4) 41.9 ml ESV(sp4-el) 41.7 ml EF(MOD-sp4) 56.8 % EF(sp4-el) 58.5 % LVAd ap2 20.7 cm\S\2 LVLd ap2 7.8 cm EDV(MOD-sp2) 45.3 ml EDV(sp2-el) 46.5 ml LVAs ap2 12.1 cm\S\2 LVLs ap2 6.7 cm ESV(MOD-sp2) 20.9 ml ESV(sp2-el) 18.5 ml EF(MOD-sp2) 53.8 % EF(sp2-el) 60.1 % LVLd %diff -10.91 % EDV(MOD-bp) 69.5 ml LVLs %diff -5.58 % ESV(MOD-bp) 29.9 ml EF(MOD-bp) 57.0 % SV(MOD-sp4) 55.1 ml SI(MOD-sp4) 28.1 ml/m\S\2 SV(MOD-sp2) 24.4 ml SI(MOD-sp2) 12.4 ml/m\S\2 SV(MOD-bp) 39.7 ml SI(MOD-bp) 20.2 ml/m\S\2 SV(sp4-el) 58.8 ml SI(sp4-el) 30.0 ml/m\S\2 SV(sp2-el) 27.9 ml SI(sp2-el) 14.2 ml/m\S\2 Doppler Measurements and Calculations MV E max dmitriy 60.0 cm/sec MV A max dmitriy 77.4 cm/sec MV E/A 0.78 MV dec time 0.22 sec Ao V2 max 128.4 cm/sec Ao max PG 6.6 mmHg Ao max PG (full) 1.6 mmHg LV V1 max PG 5.0 mmHg LV V1 max 112.2 cm/sec TR max dmitriy 285.4 cm/sec
[2016-05-22] VITALS (7 sets, daily range): BP systolic 110–145; BP diastolic 48–72; PULSE 73–96; TEMP 36.6–37.2; O2SAT 93–95
[2016-05-22] MEDS: PIPERACILL/TAZOBAC IV 3.375 GM in DEXTROSE 5% 100ML IV SCH ×2 (02:20→10:00)
--- NOTE | 2016-05-22 06:30 | History & Physical Bridge Note ---
H&P Re-Evaluation Bridge Note: I have examined the patient, reviewed the History & Physical and in the interval since the performance of the History & Physical I have noted the following changes of clinical significance: No changes noted feels better passing flatus and had a bm vitals noted for lap malena c,gram possible open today
[2016-05-22 06:38] LABS: HEMATOCRIT 35.8 % (42-52); MEAN CELL VOLUME 92.3 fL (80-100); MEAN CORPUSCULAR HGB CONC 34.6 g/dl (32-36); PLATELET COUNT 314 K/uL (130-400); RED BLOOD COUNT 3.88 M/uL (4.7-6.1); WHITE BLOOD COUNT 15.51 K/uL (4.8-10.8)
[2016-05-22 07:04] LABS: BUN/CREATININE RATIO 14.5 (10-20); CALCIUM 7.9 mg/dl (8.5-10.1); CREATININE 0.75 mg/dl (0.60-1.40); POTASSIUM 3.8 mmol/L (3.5-5.1)
[2016-05-22 07:06] LABS: ALB/GLOB RATIO 0.5 (0.9-2)
[2016-05-22] MEDS ORDERED: LIDOCAINE HCL 2% 2 ML VIAL (20MG/ML) ONE (07:54)
[2016-05-22] MEDS ORDERED: ROCURONIUM BROMIDE 10 MG/ML 5 ML VIAL ONE (07:54)
[2016-05-22] MEDS ORDERED: NEOSTIGMINE METHYLSULFATE 5 MG/5 ML SYR ONE (07:54)
[2016-05-22] MEDS ORDERED: FENTANYL CITRATE INJ 50 MCG/1 ML 2 ML VIAL ONE ×2 (07:54→09:30)
[2016-05-22] MEDS ORDERED: PHENYLEPHRINE HCL INJ 10 MG/ML VIAL ONE (07:54)
[2016-05-22] MEDS ORDERED: DEXAMETHASONE SOD INJ 4 MG/ML VIAL ONE (07:54)
[2016-05-22] MEDS ORDERED: MIDAZOLAM HCL 1 MG/ML 2ML VIAL ONE (07:54)
[2016-05-22] MEDS ORDERED: ONDANSETRON INJ 2 MG/ML 2 ML VIAL ONE (07:54)
[2016-05-22] MEDS ORDERED: PROPOFOL IV EMULSION 10 MG/ML 20 ML VIAL IV ONE (07:54)
[2016-05-22] MEDS ORDERED: EpHEDrine SULFATE INJ 50 MG/ML AMP ONE (07:54)
[2016-05-22] MEDS ORDERED: GLYCOPYRROLATE INJ 0.2 MG/ML VIAL ONE (07:54)
[2016-05-22] MEDS ORDERED: LIDOCAINE/EPINEPHRINE 1% 20 ML VIAL ONE (08:31)
[2016-05-22] MEDS ORDERED: ONDANSETRON INJ 2 MG/ML 2 ML VIAL IV PRN (09:30)
[2016-05-22] MEDS ORDERED: ATROPINE SULFATE 0.1 MG/ML 5ML SYR IV PRN (09:30)
[2016-05-22] MEDS ORDERED: EpHEDrine SULFATE INJ 50 MG/ML AMP IV PRN (09:30)
[2016-05-22] MEDS ORDERED: FENTANYL CITRATE INJ 50 MCG/1 ML 2 ML VIAL IV PRN (09:30)
[2016-05-22] MEDS ORDERED: HYDROmorphone INJ 1 MG/ML SYR IV PRN (09:30)
--- NOTE | 2016-05-22 10:03 | DIAGNOSTIC IMAGING REPORT ---
INTRAOPERATIVE CHOLANGIOGRAM (5 VIEWS) CLINICAL HISTORY: LAPAROSCOPIC CHOLECYSTECTOMY WITH CHOLANGIOGRAM COMPARISON STUDY: CT scan dated 05/20/2016 FLUOROSCOPY TIME: 7 seconds. 5 fluoroscopic spot images were acquired.. FINDINGS: There are no filling defects viewed as suspicious for retained calculi. There is free flow of contrast into the duodenum. IMPRESSION: No retained calculi are visualized Electronically signed by: Tye Becker M.D. 05/22/2016 10:01 AM Dictated Date/Time: 05/22/2016 10:00 AM
[2016-05-22] MEDS ORDERED: CONRAY 60% 50 ML VIAL INSTIL ONE (10:24)
--- NOTE | 2016-05-22 10:25 | [facility] Post Operative Brief Note ---
Immediate Operative Summary Operative Date May 22, 2016. Pre-Operative Diagnosis Acute Cholecystitis Post-Operative Diagnosis accc Procedure(s) Performed Laparoscopic Cholecystectomy with Intraoperative Cholangiogram Surgeon Dr. Rodo Anderson Junior Administrative Assistant Surgeon(s) Ramone Jackson PA-C Estimated Blood Loss 10ml Findings bilious peritoneal fluid accc Specimens Microbiology: Peritoneal fluid for culture & sensitivity and amylase gallbladder and contents Drains 19 gamal per stab
[2016-05-22] MEDS ORDERED: MoRPHine SULFATE 4 MG/ML 1 ML CARP\\VIAL IV PRN (10:45)
[2016-05-22] MEDS: PANTOprazole INJ 40 MG in SYRINGE 0 ML IV SCH (11:00)
--- NOTE | 2016-05-22 11:06 | OPERATIVE REPORT ---
DATE OF OPERATION: 05/22/2016 SURGEON: Dr. Anderson. DYE RANGE OPERATOR: RHINA Jimenez. PREOPERATIVE DIAGNOSIS: Acute and chronic cholecystitis, cholelithiasis with secondary pancreatitis. POSTOPERATIVE DIAGNOSIS: Same with bilious peritoneal fluid. PROCEDURE: Laparoscopic cholecystectomy, intraoperative cholangiogram. SUMMARY: The patient was brought into the operating room theater. The abdomen was prepped with Betadine solution and properly draped. We made a small transverse incision supraumbilically sufficient enough to place a Veress needle, followed by a 5 mm trocar, after CO2 insufflated. Once we were in there, the small bowel and the colon was distended. Under direct visualization, we placed a 10 mm epigastric, two 5 mm subcostal ports and we visualized in the right gutter the patient had a significant amount of peritoneal fluid, it looked bilious in nature. We aspirated it and sent it for culture, sensitivity and also an amylase. At this point we identified the gallbladder which was strictly adherent with adhesions, some of them were chronic rather than acute edematous adhesions, a few were. The gallbladder was significantly elongated, probably about 8 inches or so. We were able then to elevate it and as we creep down towards the neck of the gallbladder, we identified the patient had a large stone embedded in the neck of the gallbladder. Most of scar tissue was very chronic in nature. We were able to free it up mostly by blunt dissection. We created a window in the inferior aspect of the gallbladder, sufficient enough to identify what looked like a very dilated cystic duct. But prior to doing that, we immobilized the gallbladder towards the liver area to make sure that we were not dealing with the common bile duct and once we created that window, certainly we were away from it. We used the 10 mm clips and clipped it proximally on the cystic duct. A small opening in the cystic duct was made. There was no bowel really appreciated coming out of the cystic duct. We then placed a 4 urethral catheter in the cystic duct, taken serial x-rays, which showed free flow into the duodenum. The distal common bile duct was slightly dilated, but no filling defect, as was the cystic duct. The proximal biliary system appeared to be normal as far as caliber with no real filling defect. We at this point removed the cholangiocath and placed 3 clips on the cystic duct. These were large clips and we were secure, in fact, I thought about placing an Endoloop also if these were not. The artery was identified, it was branching and underneath the neck of the gallbladder. We stayed right close to the gallbladder, we were able to identify 1 branch and doubly clipped and divided. It seemed like maybe the hepatic artery was coming out, really displaced superiorly. We avoided that. The neck of the gallbladder, elevated it up, and left posterior peritoneum intact. We were able to mobilize completely the gallbladder off the liver. We placed in an Endopouch. The 10 mm trocar site was not able to be sufficiently enough to evacuate the gallbladder that we placed in an Endopouch. In fact we had to enlarge the incision to about an inch and a half, sufficient enough to cut the fascia to deliver a large stone that was rock hard. It was approximately 4 cm in length, and about 2 cm in diameter or more. The gallbladder similarly had a ton of other stones. This area was then checked for hemostasis subhepatic and suprahepatic. We placed the camera in the subcostal port to visualize the umbilical area. There was no bleeding appreciated there. I elected to drain subhepatically with a 19 Alfredo drain, taken out medially and taken out laterally, attached to skin edges with 2-0 silk. The wounds were closed with [id number] x2 fascial stitch for the epigastric area, the others with Monocryl. Steri-Strips applied. The procedure was tolerated well by the patient. Estimated blood loss 10-15 mL. The patient was taken to recovery room in good condition. I attest to the content of the Intraoperative Record and any orders documented therein. Any exceptio ns are noted below.
--- NOTE | 2016-05-22 11:46 | Anesthesiology Progress Note ---
Anesthesia Post Op Note Date & Time May 22, 2016 at 11:46 Vital Signs Pain Intensity: 0 Vital Signs Past 12 Hours Date Time Temp Pulse Resp B/P Pulse Ox O2 Delivery O2 Flow Rate FiO2 05/22/16 11:20 36.8 76 16 143/84 94 Room Air 05/22/16 11:10 81 16 153/87 95 Room Air 05/22/16 11:00 79 16 153/88 100 Mask 10 05/22/16 10:50 81 16 158/83 100 Mask 10 05/22/16 10:43 36.8 16 16 158/82 100 Mask 10 05/22/16 08:00 93 Room Air 05/22/16 07:22 37.0 74 20 123/72 93 05/22/16 04:56 36.8 73 18 128/72 94 Room Air 05/22/16 04:00 Room Air 05/22/16 00:01 Room Air Notes Mental Status: alert / awake / arousable, participated in evaluation Pt Amnestic to Procedure: Yes Nausea / Vomiting: adequately controlled Pain: adequately controlled Airway Patency, RR, SpO2: stable & adequate BP & HR: stable & adequate Hydration State: stable & adequate Anesthetic Complications: no major complications apparent
[2016-05-22] MEDS: LACTATED RINGER'S 1000ML 1,000 ML IV SCH ×2 (14:00→20:30)
--- NOTE | 2016-05-22 15:52 | Family Medicine Progress Note ---
Progress Note Date of Service May 22, 2016. Subjective Pt evaluation today including: conversation w/ patient Patient reviewed post operatively. Reported he felt well, but had some indigestion. Denied any other concerns. Discussed w/ Bill - likely DC tomorrow Constitutional: No chills, No fever, No weakness, No weight loss Eyes: No worsening of vision ENT: No hearing loss Respiratory: No cough, No dyspnea on exertion, No shortness of breath, No sputum, No wheezing Cardiovascular: No chest pain Abdomen: No diarrhea, No nausea, No pain, No vomiting Musculoskeletal: No joint pain Male : No dysuria Neurologic: No memory loss Skin: No rash All Other Systems: Reviewed and Negative Medications Current Inpatient Medications Medications (Trade) Dose Ordered Sig/Tres Route Start Time Stop Time Status Last Admin Dose Admin Ioversol (Optiray 320) 100 ml UD PRN IV 05/20/16 19:15 05/24/16 19:14 Al Hydrox/Mg Hydrox/Simethicone (Maalox Max Susp) 15 ml Q4H PRN PO 05/20/16 20:15 06/19/16 20:14 Ondansetron HCl 4 mg 4 mg Q6H PRN IV 05/20/16 20:15 06/19/16 20:14 Pantoprazole Sodium 40 mg/ Syringe 10 ml @ 5 mls/min DAILY@11 IV 05/21/16 11:00 06/20/16 10:59 05/22/16 11:00 5 MLS/MIN Lactated Ringer's (Lr 1000ml) 1,000 ml @ 125 mls/hr Q8H IV 05/21/16 14:00 06/20/16 13:59 05/22/16 14:00 125 MLS/HR Morphine Sulfate (MoRPHine SULFATE INJ) 4 mg Q1H PRN IV 05/22/16 10:45 06/05/16 10:44 Objective Vital Signs Date Time Temp Pulse Resp B/P Pulse Ox O2 Delivery O2 Flow Rate FiO2 05/22/16 14:48 36.7 73 18 110/67 95 05/22/16 12:00 93 Room Air 05/22/16 12:00 36.6 91 20 134/67 93 Room Air 05/22/16 11:20 36.8 76 16 143/84 94 Room Air 05/22/16 11:10 81 16 153/87 95 Room Air 05/22/16 11:00 79 16 153/88 100 Mask 10 05/22/16 10:50 81 16 158/83 100 Mask 10 05/22/16 10:43 36.8 16 16 158/82 100 Mask 10 05/22/16 08:00 93 Room Air 05/22/16 07:22 37.0 74 20 123/72 93 05/22/16 04:56 36.8 73 18 128/72 94 Room Air 05/22/16 04:00 Room Air 05/22/16 00:01 Room Air 05/21/16 23:43 37.1 75 18 138/76 96 Room Air 05/21/16 20:16 36.9 76 18 116/64 95 Room Air Diffusion Mask 05/21/16 20:00 96 Room Air 05/21/16 16:00 96 Room Air Physical Exam General Appearance: WD/WN, no apparent distress Eyes: normal inspection, PERRL ENT: hearing grossly normal Neck: supple, no JVD Respiratory/Chest: lungs clear, normal breath sounds, no respiratory distress Cardiovascular: regular rate, rhythm, no murmur Abdomen: soft, + guarding Extremities: non-tender, normal inspection, no pedal edema Neurologic/Psychiatric: alert, normal mood/affect, oriented x 3 Skin: no rash Laboratory Results Last 24 Hours Test 05/22/16 00:00 05/22/16 05:35 Peritoneal Fluid Amylase 28 U/L White Blood Count 15.51 K/uL Red Blood Count 3.88 M/uL Hemoglobin 12.4 g/dL Hematocrit 35.8 % Mean Corpuscular Volume 92.3 fL Mean Corpuscular Hemoglobin 32.0 pg Mean Corpuscular Hemoglobin Concent 34.6 g/dl RDW Standard Deviation 43.5 fL RDW Coefficient of Variation 12.9 % Platelet Count 314 K/uL Mean Platelet Volume 10.0 fL Sodium Level 139 mmol/L Potassium Level 3.8 mmol/L Chloride Level 102 mmol/L Carbon Dioxide Level 27 mmol/L Anion Gap 10.0 mmol/L Blood Urea Nitrogen 11 mg/dl Creatinine 0.75 mg/dl Est Creatinine Clear Calc Drug Dose 102.2 ml/min Estimated GFR () 113.9 Estimated GFR (Non- 98.3 BUN/Creatinine Ratio 14.5 Random Glucose 109 mg/dl Calcium Level 7.9 mg/dl Total Bilirubin 1.2 mg/dl Direct Bilirubin 0.7 mg/dl Aspartate Amino Transf (AST/SGOT) 20 U/L Alanine Aminotransferase (ALT/SGPT) 73 U/L Alkaline Phosphatase 89 U/L Total Protein 5.6 gm/dl Albumin 1.9 gm/dl Globulin 3.7 gm/dl Albumin/Globulin Ratio 0.5 Resident Tracking Resident Involvement: Resident Care Provided Care Provided: [facility] Assessment and Plan 61 yo M presented with epigastric pain sec to acute cholecystitis, initially with EKG changes on admission (new anterior T wave inversion), day 0 s/p lap malena. Acute cholecystitis/Gall stone pancreatitis - S/P Lap malena - Continue to monitor - Advance diet as able - Continue IV fluids - Will stop Zosyn now Electrolyte disturbance - Resolved EKG changes - Continue to monitor - Echo today Abdominal discomfort/Nausea sec to Ileus due to constipation and acute illness - Well controlled currently, continue PRN Zofran, will add Morphine if needed VTE: SCDS CODE: FULL DISPO: MED/SURG Reviewed: Pt Seen/Exam by Me History no concerns Constitutional: denies: fever Respiratory: negative: short of breath Gastrointestinal/Abdominal: positive: abdominal pain (controlled) General Appearance: no apparent distress Respiratory: lungs clear, no respiratory distress Cardiovascular: regular rate, rhythm Gastrointestinal: normal bowel sounds, soft, tenderness (incisional) Neurologic/Psychiatric: alert, oriented x 3 Assessment/Plan I have reviewed the medical record and performed a history and physical examination of this patient today. I have discussed the case with Dr. Diaz. The above note reflects my findings, conclusions, and recommendations.
[2016-05-22] MEDS: HEPARIN SOD 5000 UNIT/0.5 ML CARP SQ SCH (20:31)
[2016-05-23] VITALS (7 sets, daily range): BP systolic 106–154; BP diastolic 70–88; PULSE 73–77; TEMP 36.7–37.3; O2SAT 94–96
[2016-05-23] MEDS: LACTATED RINGER'S 1000ML 1,000 ML IV SCH (04:37)
[2016-05-23 06:20] LABS: BASO % 0.1 %; BASO ABS # 0.02 K/uL (0-0.2); COMPLETE YES; EOS % 0.5 %; HEMATOCRIT 34.8 % (42-52); IG% 1.2 %; LYMPH ABS # 1.35 K/uL (1.2-3.4); MEAN CELL VOLUME 91.1 fL (80-100); MEAN CORPUSCULAR HEMOGLOBIN 31.7 pg (25-34); MEAN CORPUSCULAR HGB CONC 34.8 g/dl (32-36); MEAN PLATELET VOLUME 10.1 fL (7.4-10.4); MONO % 11.5 %; NEUT % 76.7 %; PLATELET COUNT 335 K/uL (130-400); RED BLOOD COUNT 3.82 M/uL (4.7-6.1); WHITE BLOOD COUNT 13.56 K/uL (4.8-10.8)
[2016-05-23 06:46] LABS: BUN/CREATININE RATIO 12.7 (10-20); CALCIUM 7.7 mg/dl (8.5-10.1); CREATININE 0.71 mg/dl (0.60-1.40); POTASSIUM 3.5 mmol/L (3.5-5.1)
[2016-05-23 06:49] LABS: ALB/GLOB RATIO 0.6 (0.9-2)
--- NOTE | 2016-05-23 07:14 | SURGERY PROGRESS NOTE ---
DATE: 05/23/2016 Kentrell is resting comfortably, he is in no distress. He is not having any pain. He has been moving his bowels. He is alert, coherent. Intraoperative findings were discussed with the patient. His last vitals showed a temperature of 37.2, pulse 76, respirations 20, blood pressure 106/80, O2 sats 95 on room air. I\T\O, he had 900 mL of urine overnight. The Alfredo drainage was 90 mL serosanguineous, nonbilious. He is leaking something around the drain, which is not unexpected given the sign that we had free fluid in the belly at the time of the surgery. Laboratory this morning, his liver function tests are pending, but the bilirubin is 0.5, potassium 3.5, BUN 9, creatinine 0.71. His abdomen is softly distended. He had no problem with oral intake. At this point, he can be transferred to a regular floor. Certainly, he is not ready to be discharged. We will see that once he resolves his ileus or regains his GI function more completely and can tolerate a diet. We will give him broad spectrum antibiotics. The hemoglobin this morning is 12.1 and WBCs are 13.56 with decrease in left shift.
--- NOTE | 2016-05-23 07:22 | Discharge Instructions ---
Discharge Instructions Admission Reason for Admission: Atypical Chest Pain, Ileus Discharge Discharge Diagnosis / Problem: Pancreatitis, s/p laparoscopic cholecystectomy Discharge Goals Goal(s): Improve disease control Activity Recommendations Activity Limitations: per Instructions/Follow-up section . Instructions / Follow-Up Instructions / Follow-Up Follow up with Dr Anderson as instructed by their group Follow up with your PCP within a week Current Hospital Diet Patient's current hospital diet: Clear Liquid Diet Discharge Diet Recommended Diet: Regular Diet Procedures Procedures Performed: Laparoscopic Cholecystectomy with Intraoperative Cholangiogram Pending Studies Studies pending at discharge: no Medical Emergencies . Who to Call and When: Medical Emergencies: If at any time you feel your situation is an emergency, please call 911 immediately. . Non-Emergent Contact Non-Emergency issues call your: Surgeon Call Non-Emergent contact if: you have a fever, your pain is not controlled, your pain is unusual for you, your pain is concerning you, wound has increased drainage, wound has increased redness, wound has increased pain . . "Provider Documentation" section prepared by Sneha Diaz. VTE Core Measure Inpt VTE Proph given/why not?: SCD's
[2016-05-23] MEDS: HEPARIN SOD 5000 UNIT/0.5 ML CARP SQ SCH ×2 (08:41→20:53)
[2016-05-23] MEDS ORDERED: PIPERACILL/TAZOBAC CONSULT ACTIVE PRN (10:00)
[2016-05-23] MEDS ORDERED: PIPERACILL/TAZOBAC IV 4.5 GM in DEXTROSE 5% 100ML 100 ML IV ONE (10:30)
--- NOTE | 2016-05-23 10:37 | Family Medicine Progress Note ---
Progress Note Date of Service May 23, 2016. Subjective Pt evaluation today including: conversation w/ patient, physical exam Voiding: no voiding problems, no incontinence Mr Kennedy reports feeling well today. Denies any pain at any point. Reports he has some diarrhea, had brown soft stool which was formed. Still has drainage. Constitutional: No chills, No fever, No sweats ENT: No hearing loss Respiratory: No cough, No sputum Cardiovascular: No chest pain Abdomen: No constipation, No diarrhea, No nausea, No pain, No vomiting Musculoskeletal: No joint pain All Other Systems: Reviewed and Negative Medications Current Inpatient Medications Medications (Trade) Dose Ordered Sig/Tres Route Start Time Stop Time Status Last Admin Dose Admin Ioversol (Optiray 320) 100 ml UD PRN IV 05/20/16 19:15 05/24/16 19:14 Ondansetron HCl 4 mg 4 mg Q6H PRN IV 05/20/16 20:15 06/19/16 20:14 Pantoprazole Sodium 40 mg/ Syringe 10 ml @ 5 mls/min DAILY@11 IV 05/21/16 11:00 06/20/16 10:59 05/22/16 11:00 5 MLS/MIN Lactated Ringer's (Lr 1000ml) 1,000 ml @ 50 mls/hr Q20H IV 05/21/16 14:00 05/23/16 04:37 125 MLS/HR Heparin Sodium (Porcine) 5000 unit 5,000 unit Q12 SQ 05/22/16 21:00 06/21/16 20:59 05/23/16 08:41 5,000 UNIT Piperacillin Sod/ Tazobactam Sod/ Dextrose (Zosyn Iv/D5 100ml) 120 ml @ 240 mls/hr NOW ONCE IV 05/23/16 10:30 05/23/16 10:59 Piperacillin Sod/ Tazobactam Sod 1 ea 1 ea UD PRN N/A 05/23/16 10:00 06/22/16 09:59 Piperacillin Sod/ Tazobactam Sod/ Dextrose (Zosyn Iv/D5 100ml) 115 ml @ 28.75 mls/ hr Q8H IV 05/23/16 16:00 05/25/16 15:59 Objective Vital Signs Date Time Temp Pulse Resp B/P Pulse Ox O2 Delivery O2 Flow Rate FiO2 05/23/16 09:48 36.7 76 16 96 05/23/16 08:00 Room Air 05/23/16 07:44 36.7 76 16 134/70 96 Room Air 05/23/16 04:46 37.2 76 20 106/80 95 Room Air 05/23/16 04:00 Room Air 05/23/16 00:13 37.2 75 18 133/70 94 Room Air 05/23/16 00:00 Room Air 05/22/16 20:10 37.2 82 20 145/48 95 Room Air 05/22/16 20:00 Room Air 05/22/16 16:00 93 Room Air 05/22/16 16:00 96 05/22/16 14:48 36.7 73 18 110/67 95 05/22/16 12:00 93 Room Air 05/22/16 12:00 36.6 91 20 134/67 93 Room Air 05/22/16 11:20 36.8 76 16 143/84 94 Room Air 05/22/16 11:10 81 16 153/87 95 Room Air 05/22/16 11:00 79 16 153/88 100 Mask 10 05/22/16 10:50 81 16 158/83 100 Mask 10 05/22/16 10:43 36.8 16 16 158/82 100 Mask 10 Physical Exam General Appearance: WD/WN, no apparent distress Eyes: normal inspection, PERRL ENT: hearing grossly normal Neck: supple, no JVD Respiratory/Chest: lungs clear, normal breath sounds, no respiratory distress Cardiovascular: regular rate, rhythm, no murmur Abdomen: normal bowel sounds, non tender, soft, + pertinent finding (drain in place - serosanguinous red-tinged fluid) Extremities: non-tender, normal inspection, no pedal edema Neurologic/Psychiatric: alert, normal mood/affect, oriented x 3 Skin: no rash Laboratory Results Last 24 Hours Test 05/23/16 05:18 White Blood Count 13.56 K/uL Red Blood Count 3.82 M/uL Hemoglobin 12.1 g/dL Hematocrit 34.8 % Mean Corpuscular Volume 91.1 fL Mean Corpuscular Hemoglobin 31.7 pg Mean Corpuscular Hemoglobin Concent 34.8 g/dl Platelet Count 335 K/uL Mean Platelet Volume 10.1 fL Neutrophils (%) (Auto) 76.7 % Lymphocytes (%) (Auto) 10.0 % Monocytes (%) (Auto) 11.5 % Eosinophils (%) (Auto) 0.5 % Basophils (%) (Auto) 0.1 % Neutrophils # (Auto) 10.40 K/uL Lymphocytes # (Auto) 1.35 K/uL Monocytes # (Auto) 1.56 K/uL Eosinophils # (Auto) 0.07 K/uL Basophils # (Auto) 0.02 K/uL RDW Standard Deviation 42.0 fL RDW Coefficient of Variation 12.6 % Immature Granulocyte % (Auto) 1.2 % Immature Granulocyte # (Auto) 0.16 K/uL Sodium Level 140 mmol/L Potassium Level 3.5 mmol/L Chloride Level 105 mmol/L Carbon Dioxide Level 27 mmol/L Anion Gap 8.0 mmol/L Blood Urea Nitrogen 9 mg/dl Creatinine 0.71 mg/dl Est Creatinine Clear Calc Drug Dose 107.9 ml/min Estimated GFR () 116.5 Estimated GFR (Non- 100.6 BUN/Creatinine Ratio 12.7 Random Glucose 103 mg/dl Calcium Level 7.7 mg/dl Total Bilirubin 0.9 mg/dl Direct Bilirubin 0.5 mg/dl Aspartate Amino Transf (AST/SGOT) 34 U/L Alanine Aminotransferase (ALT/SGPT) 72 U/L Alkaline Phosphatase 85 U/L Total Protein 5.5 gm/dl Albumin 2.0 gm/dl Globulin 3.5 gm/dl Albumin/Globulin Ratio 0.6 Assessment and Plan 61 yo M presented with epigastric pain sec to acute cholecystitis, initially with EKG changes on admission (new anterior T wave inversion), day 1 s/p lap cholecystectomy with Dr Anderson. Acute Cholecystitis/Gallstone pancreatitis S/P Lap malena - Continue to monitor - Advance diet as able - Continue IV fluids - Will restart Zosyn as per Dr Anderson's note - could transition to PO once intake improves Electrolyte disturbance - Resolved EKG changes - Resolved - Echo completed VTE: SCDS CODE: FULL DISPO: MED/SURG Resident Tracking Resident Involvement: Resident Care Provided Care Provided: Adult [facility] Medicine Reviewed: Pt Seen/Exam by Me History doing well tolerated clears Constitutional: denies: fever Respiratory: negative: short of breath Cardiovascular: denies chest pain Gastrointestinal/Abdominal: negative: abdominal pain General Appearance: no apparent distress Respiratory: lungs clear, no respiratory distress Cardiovascular: regular rate, rhythm Gastrointestinal: normal bowel sounds, soft, tenderness (incisional. VERITO drain present) Neurologic/Psychiatric: alert, oriented x 3 Skin Characteristics: warm/dry Assessment/Plan I have reviewed the medical record and performed a history and physical examination of this patient today. I have discussed the case with Dr. Diaz. The above note reflects my findings, conclusions, and recommendations.
[2016-05-23] MEDS: PANTOprazole INJ 40 MG in SYRINGE 0 ML IV SCH (11:01)
[2016-05-23] MEDS: PIPERACILL/TAZOBAC IV 3.375 GM in DEXTROSE 5% 100ML IV SCH (16:30)
[2016-05-24] MEDS: LACTATED RINGER'S 1000ML 1,000 ML IV SCH (00:11)
[2016-05-24] MEDS: PIPERACILL/TAZOBAC IV 3.375 GM in DEXTROSE 5% 100ML IV SCH ×2 (00:11→08:34)
[2016-05-24 07:06] VITALS: BP 138/75; PULSE 76; TEMP 37; O2SAT 96
--- NOTE | 2016-05-24 07:17 | SURGERY PROGRESS NOTE ---
DATE: 05/24/2016 HISTORY OF PRESENT ILLNESS: Kentrell is doing well. He had a good day yesterday. His abdomen is softer. He feels less bloated. He continues to have some loose bowel movements that he said. PHYSICAL EXAMINATION: His last vitals showed a temperature of 37.3, pulse 77, respirations 18, blood pressure 145/82 and O2 sats 94 on room air. He is diuresing and his IV was cut down yesterday. We will discontinue it today. The abdomen is much softer. The Alfredo drainage in the right upper quadrant is serous, slightly sanguineous. He did have a free abdominal fluid when we first head in and so, this may be a little peritoneal fluid from the pancreatitis. We certainly could probably remove that before he goes home. He is tolerating a full liquid diet without any problem and is hungry. No back pain. We will go ahead and advance his diet. LABORATORY DATA: His lab yesterday his white count has continued to decrease, it was 13.56 with decreasing left shift. His liver and function were all normal. ASSESSMENT AND PLAN: From my point of view, the patient will probably be able to discharge later today or possibly tomorrow and further instructions will be given to him. The peritoneal fluid would be first aspirated. Cultures are all negative so far. The pathology on the gallbladder is pending.
[2016-05-24] MEDS: HEPARIN SOD 5000 UNIT/0.5 ML CARP SQ SCH (08:38)
[2016-05-24] MEDS: PANTOprazole INJ 40 MG in SYRINGE 0 ML IV SCH (12:00)
[2016-05-24] MEDS ORDERED: CIPR1TAB10 PO (13:21)
[2016-05-24 14:39] VITALS: BP 138/75; PULSE 76; TEMP 37; O2SAT 96
[2016-05-24 14:53] VITALS: BP 112/70; PULSE 79; TEMP 36.8; O2SAT 96
--- NOTE | 2016-05-24 19:28 | Discharge Summary ---
Discharge Summary Admission Date: May 20, 2016 at 20:17 Discharge Date: May 23, 2016 Discharge Disposition: Home Principal Diagnosis: Acute and chronic cholecystitis, cholelithiasis with pancreatitis Procedures: 05/22/16: PROCEDURE: Laparoscopic cholecystectomy, intraoperative cholangiogram. (Sneha Diaz MD) Medication Reconciliation New Medications: Ciprofloxacin Hcl (Cipro) 500 Mg Tab 500 MG PO BID, #10 TAB Continued Medications: Multivitamin (Multivitamin) Tab 1 TAB PO DAILY, TAB Discharge Exam Review of Systems: Constitutional: No fever Respiratory: No shortness of breath Cardiovascular: No chest pain Abdomen: No nausea, No pain, No vomiting Physical Exam: General Appearance: no apparent distress Respiratory/Chest: lungs clear, no respiratory distress Cardiovascular: regular rate, rhythm Abdomen / GI: normal bowel sounds, non tender, soft, + pertinent finding ( VERITO drain removed) Neurologic/Psychiatric: alert, oriented x 3 Skin: warm/dry (Radha Colbert M.D.) Hospital Course Mr Kentrell Kennedy is a 61 yo M who initially presented with 5 days of epigastric pain. He had indigestion, which he usually has, but started to vomit, and had occasional diarrhea and anorexia. He was essentially found to have acute/ chronic cholecystitis as a cause of his symptoms and had a cholecystectomy with Dr Anderson. During his procedure he was found to have bilious peritoneal fluid, so post-operatively he was on Zosyn and then transitioned to Ciprofloxacin. Prior to his operation, he did have anterior T wave inversion on his EKG but with his low cardiac risk and normal echocardiogram this was deemed insignificant. Acute cholecystitis, s/p laparoscopic cholecystectomy - Diet advanced slowly and well tolerated - To continue Ciprofloxacin as prescribed for peritoneal fluid - Follow up with Dr Anderson as arranged Electrolyte disturbance - Resolved EKG changes - Echo completed, as above VTE: SCDS CODE: FULL CODE DISPO: Discharged home 05/24/16 in good condition Total Time Spent: Greater than 30 minutes This includes examination of the patient, discharge planning, medication reconciliation, and communication with other providers. (Sneha Diaz MD) I have reviewed the medical record and performed a history and physical examination of this patient today. I have discussed the case with Dr. Diaz. The above note reflects my findings, conclusions, and recommendations. Total Time Spent: Greater than 30 minutes (35 min) (Radha Colbert M.D.) Discharge Instructions Please refer to the electronic Patient Visit Report (Discharge Instructions) for additional information. (Sneha Diaz MD) Additional Copies To Lei Negron M.D. Resident Tracking Resident Involvement: Resident Care Provided Care Provided: Adult [facility] (Sneha Diaz MD)
== END 2016-05-24 16:00 | disposition home or self-care (01) | DRG 417 ==
LOC: ENRESERVDT → ENRESERVTM → C.EDB 15:59 → C.MED 20:17 → C.MSW 05-23 13:20
PROVIDERS: ADMIT Internal Medicine; ATTEND Family Medicine
PROC: 0FT44ZZ Resection of Gallbladder, Percutaneous Endoscopic Approach (ICD-10-PCS; principal; 2016-05-22 08:30)
PROC: BF14YZZ Fluoroscopy of Gallbladder, Bile Ducts and Pancreatic Ducts using Other Contrast (ICD-10-PCS; principal; 2016-05-22 08:30)
DX: K80.00 Calculus of gallbladder with acute cholecystitis without obstruction (principal); K85.10 Biliary acute pancreatitis without necrosis or infection; K56.7 Ileus, unspecified; E87.1 Hypo-osmolality and hyponatremia; E87.6 Hypokalemia; Z82.49 Family history of ischemic heart disease and other diseases of the circulatory system; K80.12 Calculus of gallbladder with acute and chronic cholecystitis without obstruction; K59.00 Constipation, unspecified